=== PATIENT | female | born 1990 | race Caucasian/White ===

== ENCOUNTER 2018-06-26 00:34 | Observation (INO) | payer MEDICAID ==
[~2018-06-26] VITALS: Ht 157.5 cm; Wt 93.0 kg
[2018-06-26 01:14] LABS: BASOPHILS 0.3 % (0-2); EOSINOPHILS 3.4 % (0-7); HEMATOCRIT 37.1 % (36.0-48.0); HEMOGLOBIN 12.1 g/dL (12-16); IMMATURE GRANULOCYTES 0.8 % (0-5); LYMPHOCYTES 28.7 % (15-50); MCH 27.5 pg (26.0-34.0); MCHC 32.6 g/dL (31.0-37.0); MCV 84.3 fL (80.0-100.0); NEUTROPHILS 57.8 % (40-80); PLATELET COUNT 252 10x3/uL (130-400); RDW 14.5 % (11.5-14.5); WBC 11.2 10x3/uL (4.8-10.8)
[2018-06-26 01:28] LABS: ALBUMIN 3.5 g/dL (3.4-5.0); ALKALINE PHOSPHATASE 78 U/L (46-116); ALT (SGPT) 50 U/L (10-68); BILIRUBIN - TOTAL 0.33 mg/dL (0.2-1.3); CALC OSMOLALITY 279 mosm/kg (275-300); CALCIUM 8.7 mg/dL (8.5-10.1); CARBON DIOXIDE 27.7 mmol/L (21.0-32.0); CHLORIDE - SERUM 104 mmol/L (98-107); CREATININE - SERUM 0.8 mg/dL (0.6-1.3); GLUCOSE 103 mg/dL (74-106); POTASSIUM - SERUM 3.6 mmol/L (3.5-5.1); PROTEIN - SERUM 7.6 g/dL (6.4-8.2); SODIUM 141 mmol/L (136-145); UREA NITROGEN 11 mg/dL (7-18); eGFR NON AFRICAN AMERICAN > 90 mL/min (90-120)
[2018-06-26 01:31] LABS: APTT 28.7 SECONDS (22.8-39.4); INR 1.11 (0.85-1.17); PROTIME 13.8 SECONDS (11.6-15.0)
--- NOTE | 2018-06-26 03:32 | NUR ---
PT'S STOOL FOR OCCULT BLOOD POSITIVE. IV TO RIGHT ARM BEGAN 20G.
--- NOTE | 2018-06-26 03:50 | NUR ---
PT ADMITTED TO 2211. IV CON'T ON TRANSFER NS AT 75/ML HOUR. BELONGINGS WITH PATIENT.
--- NOTE | 2018-06-26 04:00 | NUR ---
RECEIVED PT FROM ER VIA W/C ACCOMPANIED BY FRIEND. ALERT AND ORIENTED X4. STATES SHE HAS BEEN HAVING RECTAL BLEEDING WITH LOOSE BMS FOR 4 DAYS NOW. STATES SHE HAS HX OF ULCERS. LAST COLONOSCOPY WAS IN IN JAN 2018 IN WHICH SHE STATES THEY FOUND "ULCERS". HAS MILD LUQ PAIN. NAUSEA, NO VOMITING. ABD IS OBESE, SOFT. BS PRESENT X4 QUADS. INSTRUCTED TO CALL STAFF WITH EACH BM SO STAFF CAN MONITOR AMOUNT OF BLEEDING AND SHE VERBALIZED UNDERSTANDING OF THIS. AMBULATORY. NO ACUTE DISTRESS. NS @ 75 ML/HR INFUSING IN RT FOREARM WITHOUT DIFF. CL IN REACH.
[2018-06-26 05:42] VITALS: BP 99/47; BMI 37.6
--- NOTE | 2018-06-26 06:54 | NUR ---
I have reviewed this patient and I concur with the Shift Assessment completed by the Licensed Practical Nurse today this shift.
[2018-06-26 07:26] LABS: HEMATOCRIT 35.1 % (36.0-48.0); HEMOGLOBIN 11.5 g/dL (12-16)
--- NOTE | 2018-06-26 08:29 | NUR ---
AWAKE AND ALERT. ORIENTED X3. REPORTS ABDOMINAL PAIN LEVEL 6 AT THIS TIME. LUNGS ARE CLEAR BIALTERALLY, NO COUGH NOTED. SKIN IS INTACT WITHOUT REDNESS. IV TO RIGHT FOREARM IS PATENT WITHOUT REDNESS AT INSERTION SITE. FAMILY AT BEDSIDE. DENIES NEEDS.
[2018-06-26 08:44] VITALS: BP 90/46
--- NOTE | 2018-06-26 09:00 | NUR ---
UP TO BR PER SELF. HAD LOOSE WATERY STOOL WITH OBVIOUS SHELDON BLEEDING, BRIGHT RED. WILL MONITOR. MANUAL RECHECK ON BP IS 118/62
--- NOTE | 2018-06-26 09:58 | NUR ---
PATIENT IS UP AD [place] AND REFUSED SCD'S.
[2018-06-26 10:12] LABS: BASOPHILS 0.3 % (0-2); EOSINOPHILS 4.3 % (0-7); HEMATOCRIT 36.2 % (36.0-48.0); HEMOGLOBIN 11.7 g/dL (12-16); IMMATURE GRANULOCYTES 1.1 % (0-5); LYMPHOCYTES 25.4 % (15-50); MCH 27.3 pg (26.0-34.0); MCHC 32.3 g/dL (31.0-37.0); MCV 84.4 fL (80.0-100.0); MEAN PLATELET VOLUME 9.4 fL (7.4-10.4); MONOCYTES 9.4 % (2-11); NEUTROPHILS 59.5 % (40-80); PLATELET COUNT 241 10x3/uL (130-400); RBC 4.29 10x6/uL (4.00-5.40); RDW 14.8 % (11.5-14.5); WBC 9.2 10x3/uL (4.8-10.8)
[2018-06-26 10:27] LABS: CALC OSMOLALITY 277 mosm/kg (275-300); CALCIUM 8.2 mg/dL (8.5-10.1); CARBON DIOXIDE 25.8 mmol/L (21.0-32.0); CHLORIDE - SERUM 106 mmol/L (98-107); CREATININE - SERUM 0.7 mg/dL (0.6-1.3); GLUCOSE 91 mg/dL (74-106); SODIUM 140 mmol/L (136-145); UREA NITROGEN 9 mg/dL (7-18); eGFR NON AFRICAN AMERICAN > 90 mL/min (90-120)
--- NOTE | 2018-06-26 11:00 | NUR ---
UP WALKING IN HALLWAY. DENIES NEEDS.
[2018-06-26 12:38] VITALS: BP 109/48
--- NOTE | 2018-06-26 13:30 | NUR ---
RESTING QUIETLY IN BED. DENIES NEEDS. NO FURTHER STOOLS AT THIS TIME.
[2018-06-26 14:52] LABS: HEMATOCRIT 37.4 % (36.0-48.0); HEMOGLOBIN 12.4 g/dL (12-16)
--- NOTE | 2018-06-26 15:50 | NUR ---
REQUESTED AND GIVEN 0.5MG DILAUDID SLOW IVP FOR C/O ABDOMINAL PAIN LEVEL 7. WILL MONITOR.
--- NOTE | 2018-06-26 17:00 | NUR ---
REPORTS PAIN IMPROVED SLIGTHTY. DENIES NEEDS.
[2018-06-26 17:17] VITALS: BP 109/59
--- NOTE | 2018-06-26 18:00 | NUR ---
OFF UNIT VIA WC FOR TEST. FAMILY IN ROOM.
--- NOTE | 2018-06-26 19:45 | NUR ---
PT RESTING IN BED. ALERT AND ORITNED. NO SIGNS OF DISTRESS. BREATHING EVEN AND UNLABORED. PT STATES NO PROBLEMS AT THIS TIME. IV SITE RT FA DRESSING CLEAN DRY AND INTACT. NO SIGNS OF INFECTION. BOWEL SOUNDS ACTIVE. NO LOWER LEG SWELLING PRESENT. WILL CONTINUE PLAN OF CARE. CALL LIGHT IN REACH. BED LOWERED AND LOCKED. BED RAILS UP X1.
[2018-06-26 22:39] VITALS: BP 129/60
[2018-06-26 23:08] LABS: HEMATOCRIT 37.2 % (36.0-48.0); HEMOGLOBIN 12.3 g/dL (12-16)
--- NOTE | 2018-06-26 23:30 | NUR ---
PT IV INFULTRATED. NEW IV STARTED RT FA. ATTEMPTS X2. PT TOLERATED WELL. RT FA 20G. IV FLUIDS CONTINUED. JERMAIN CONTINUE PLAN OF CARE.
--- NOTE | 2018-06-27 04:45 | NUR ---
I have reviewed this patient and I concur with the Shift Assessment completed by the Licensed Practical Nurse today this shift.
[2018-06-27 05:53] VITALS: BP 93/67
[2018-06-27 06:04] LABS: BASOPHILS 0.4 % (0-2); HEMOGLOBIN 11.7 g/dL (12-16); IMMATURE GRANULOCYTES 1.1 % (0-5); MCH 27.8 pg (26.0-34.0); MCHC 32.5 g/dL (31.0-37.0); MCV 85.5 fL (80.0-100.0); MEAN PLATELET VOLUME 9.7 fL (7.4-10.4); MONOCYTES 10.9 % (2-11); NEUTROPHILS 48.6 % (40-80); PLATELET COUNT 254 10x3/uL (130-400); RBC 4.21 10x6/uL (4.00-5.40); RDW 14.6 % (11.5-14.5)
[2018-06-27 06:28] LABS: CALC OSMOLALITY 282 mosm/kg (275-300); CALCIUM 8.1 mg/dL (8.5-10.1); CARBON DIOXIDE 28.2 mmol/L (21.0-32.0); CHLORIDE - SERUM 106 mmol/L (98-107); CREATININE - SERUM 0.6 mg/dL (0.6-1.3); GLUCOSE 90 mg/dL (74-106); POTASSIUM - SERUM 3.7 mmol/L (3.5-5.1); SODIUM 143 mmol/L (136-145); UREA NITROGEN 8 mg/dL (7-18); eGFR NON AFRICAN AMERICAN > 90 mL/min (90-120)
--- NOTE | 2018-06-27 07:30 | NUR ---
RESTING QUIETLY WITH EYES CLOSED. NO NEEDS NOTED. FAMILY AT BEDSIDE.
[2018-06-27 07:47] LABS: ERYTHROCYTE SEDIMENTATION RATE 11 mm/hr (0-20)
[2018-06-27 09:19] VITALS: Ht 157.5 cm; Wt 93.0 kg
--- NOTE | 2018-06-27 09:45 | NUR ---
AWAKE AND ALERT. ORIENTED X3. REQUESTED AND GIVEN 0.5MG DILAUDID SLWO IVP FOR C/O ABDOMINAL PAIN LEVEL 7. WILL MONITOR. LUNGS ARE CLEAR BILATERALLY, NO COUGH NOTED. SKIN IS INTACT WITHOUT REDNESS. IV TO RIGHT FOREARM IS PATENT WITHOUT REDNESS AT INSERTION SITE. DENIES FURTHER NEEDS.
[2018-06-27 09:46] VITALS: BP 107/58
--- NOTE | 2018-06-27 10:15 | NUR ---
PLACED IN ENTERIC ISOLATION FOR CDIFF. DISCUSSED WITH PATIENT. ALL QUESTIONS ANSWERED.
--- NOTE | 2018-06-27 13:30 | NUR ---
UP TO BR PER SELF FOR HIBICLENS BATH. DENIES NEEDS.
[2018-06-27 14:42] LABS: HEMATOCRIT 35.7 % (36.0-48.0); HEMOGLOBIN 11.7 g/dL (12-16)
[2018-06-27 15:10] VITALS: BP 114/55
[2018-06-27 17:24] VITALS: BP 103/46; BP 108/44
--- NOTE | 2018-06-27 19:45 | NUR ---
PT RESTING IN BED. ALERT AND ORIENTED. NO SIGNS OF DISTRESS. BREATHING EVEN AND UNLABORED. PT STATES NO PROBLEMS AT THIS TIME. IV SITE RT FA DRESSING CLEAN DRY AND INTACT. NO SIGNS OF INFECTION. SKIN CLEAN DRY AND INTACT. BOWEL SOUNDS ACTIVE. NO LOWER LEG SWELLING PRESENT. WILL CONTINUE PLAN OF CARE. CALL LIGHT IN REACH. BED LOWERED AND LOCKED. BED RAILS UP X1. FAMILY AT BEDSIDE.
[2018-06-27 21:37] VITALS: BP 90/45
[2018-06-28 04:48] VITALS: BP 106/54
[2018-06-28 05:14] LABS: BASOPHILS 0.3 % (0-2); EOSINOPHILS 4.6 % (0-7); HEMATOCRIT 36.1 % (36.0-48.0); IMMATURE GRANULOCYTES 1.1 % (0-5); MCH 27.9 pg (26.0-34.0); MCHC 33.2 g/dL (31.0-37.0); MEAN PLATELET VOLUME 9.5 fL (7.4-10.4); MONOCYTES 8.4 % (2-11); NEUTROPHILS 56.6 % (40-80); PLATELET COUNT 270 10x3/uL (130-400); RDW 14.4 % (11.5-14.5); WBC 10.1 10x3/uL (4.8-10.8)
[2018-06-28 05:29] LABS: CALC OSMOLALITY 279 mosm/kg (275-300); CALCIUM 8.5 mg/dL (8.5-10.1); CHLORIDE - SERUM 103 mmol/L (98-107); GLUCOSE 128 mg/dL (74-106); POTASSIUM - SERUM 3.4 mmol/L (3.5-5.1); SODIUM 140 mmol/L (136-145); UREA NITROGEN 9 mg/dL (7-18)
[2018-06-28 05:51] LABS: CREATININE - SERUM 0.8 mg/dL (0.6-1.3); eGFR NON AFRICAN AMERICAN > 90 mL/min (90-120)
[2018-06-28] MEDS ORDERED: ANUSOL-HC 2.5%30 GM RC (10:34)
[2018-06-28] MEDS ORDERED: FLAGYL500 MG PO (10:36)
[2018-06-28] MEDS ORDERED: ZITHROMAX500 MG PO (10:56)
--- NOTE | 2018-06-28 11:25 | NUR ---
PIV REMOVED, TIP INTACT.
--- NOTE | 2018-06-28 12:25 | NUR ---
DISCUSSED DISCHARGE, MEDICATION AND FOLLOW-UP INSTRUCTIONS WITH PATIENT. ALL BELONGINGS SENT WITH PATIENT. DISCHARGED HOME ACCOMPANIED BY FAMILY.
== END 2018-06-28 12:25 | disposition home or self-care (01) ==
LOC: D.ER 00:34 → D.MS 02:29 → OBSVTIME 02:29 → D.MS 02:29
PROVIDERS: Emergency Medicine; Internal Medicine Gastroenterology; ADMIT Internal Medicine Nephrology; ATTEND Internal Medicine Nephrology
DX: K92.2 Gastrointestinal hemorrhage, unspecified (principal); D62 Acute posthemorrhagic anemia; K64.1 Second degree hemorrhoids; A04.72 Enterocolitis due to Clostridium difficile, not specified as recurrent

== ENCOUNTER → 2018-09-14 16:21 | Outpatient (CLI) | payer MEDICAID | END | disposition home or self-care (01) | LOC: D.LAB 16:21 | DX: R19.7 Diarrhea, unspecified (principal); Z87.19 Personal history of other diseases of the digestive system ==

== ENCOUNTER 2019-11-24 05:12 | Emergency (ER) | payer OTHER, MEDICAID ==
[~2019-11-24] VITALS: Ht 157.5 cm; Wt 88.5 kg
[~2019-11-24 05:12] MED LIST: ANUSOL-HC 2.5%30 GM RC; FLAGYL500 MG PO; ZITHROMAX500 MG PO
[2019-11-24 05:18] VITALS: Ht 157.5 cm; Wt 88.5 kg
[2019-11-24 05:37] LABS: BASOPHILS 0.8 % (0-2); EOSINOPHILS 2.3 % (0-7); HEMATOCRIT 40.4 % (36.0-48.0); HEMOGLOBIN 12.9 g/dL (12-16); IMMATURE GRANULOCYTES 0.8 % (0-5); LYMPHOCYTES 29.9 % (15-50); MCH 27.6 pg (26.0-34.0); MCHC 31.9 g/dL (31.0-37.0); MCV 86.3 fL (80.0-100.0); MEAN PLATELET VOLUME 8.8 fL (7.4-10.4); MONOCYTES 8.3 % (2-11); NEUTROPHILS 57.9 % (40-80); PLATELET COUNT 309 10x3/uL (130-400); RBC 4.68 10x6/uL (4.00-5.40); RDW 13.8 % (11.5-14.5); WBC 10.7 10x3/uL (4.8-10.8)
[2019-11-24 05:45] LABS: CALC OSMOLALITY 280 mosm/kg (275-300); CALCIUM 9.1 mg/dL (8.5-10.1); CARBON DIOXIDE 29.4 mmol/L (21.0-32.0); CHLORIDE - SERUM 104 mmol/L (98-107); CREATININE - SERUM 0.8 mg/dL (0.6-1.3); GLUCOSE 98 mg/dL (74-106); POTASSIUM - SERUM 3.9 mmol/L (3.5-5.1); SODIUM 141 mmol/L (136-145); UREA NITROGEN 12 mg/dL (7-18); eGFR NON AFRICAN AMERICAN 90 mL/min (90-120)
[2019-11-24 05:53] LABS: ALBUMIN 3.8 g/dL (3.4-5.0); ALKALINE PHOSPHATASE 88 U/L (30-120); ALT (SGPT) 60 U/L (10-68); AMYLASE - SERUM 59 U/L (25-115); BILIRUBIN - TOTAL 0.23 mg/dL (0.2-1.3); LIPASE 122 U/L (73-393); PROTEIN - SERUM 7.8 g/dL (6.4-8.2)
[2019-11-24 05:54] LABS: TROPONIN-I < 0.017 ng/mL (0.000-0.060)
[2019-11-24 05:55] LABS: HCG SERUM NEGATIVE (NEGATIVE)
[2019-11-24 06:09] LABS: BILIRUBIN NEGATIVE (NEGATIVE); GLUCOSE NEGATIVE (NEGATIVE); KETONE NEGATIVE (NEGATIVE); NITRITE NEGATIVE (NEGATIVE); UROBILINOGEN NORMAL (NORMAL)
[2019-11-24] MEDS ORDERED: ZOFRAN ODT4 MG/UDTAB PO (08:37)
[2019-11-24] MEDS ORDERED: FLORASTOR250 MG PO (08:37)
[2019-11-24] MEDS ORDERED: FLAGYL500 MG PO (08:38)
[2019-11-24 09:07] VITALS: BP 127/63
== END 2019-11-24 09:09 | disposition home or self-care (01) ==
LOC: D.ER 05:12
PROVIDERS: Family Medicine
DX: R10.30 Lower abdominal pain, unspecified (principal); R19.7 Diarrhea, unspecified; R11.2 Nausea with vomiting, unspecified